=== PATIENT | female | born 1995 | race Caucasian/White ===

== ENCOUNTER 2016-12-02 12:26 | Emergency (ER) | payer MEDICAID ==
[~2016-12-02] VITALS: Ht 162.6 cm; Wt 65.8 kg
[2016-12-02] MEDS ORDERED: AMOX875T PO (13:44)
[2016-12-02] MEDS ORDERED: NORCOTAB PO (13:44)
[2016-12-02] MEDS ORDERED: LIDOCAINE VISCOUS 2% SOLN 15ML UDC MT ONE (13:45)
[2016-12-02] MEDS ORDERED: NORCO, ANEXSIA 5/325MG TABLET (HYDROcodone/ACETAMINOPHEN) PO ONE (13:45)
[2016-12-02 14:00] VITALS: BP 134/80
== END 2016-12-02 14:03 | disposition home or self-care (01) ==
LOC: M ED 13:49
DX: K04.7 Periapical abscess without sinus (principal)